=== PATIENT | male | born 1935 | race Caucasian/White ===

== ENCOUNTER 2017-06-17 10:00 | Inpatient (IN) | payer OTHER ==
[~2017-06-17] VITALS: Ht 76.2 cm; Wt 45.4 kg
[~2017-06-17 10:00] MED LIST: LEVAQUIN750 MG; RIFAMPIN300 MG
== END 2017-06-29 09:38 | disposition home or self-care (01) | DRG 193 ==
LOC: ER 10:00 → MEDI 19:32
PROC: 3E0F7GC Introduction of Other Therapeutic Substance into Respiratory Tract, Via Natural or Artificial Opening (ICD-10-PCS; principal; 2017-06-17)
PROC: 4A033R1 Measurement of Arterial Saturation, Peripheral, Percutaneous Approach (ICD-10-PCS; 2017-06-17)
PROC: BB24ZZZ Computerized Tomography (CT Scan) of Bilateral Lungs (ICD-10-PCS; 2017-06-18)
PROC: B246ZZZ Ultrasonography of Right and Left Heart (ICD-10-PCS; 2017-06-24)
DX: J09.X1 Influenza due to identified novel influenza A virus with pneumonia (principal); I50.23 Acute on chronic systolic (congestive) heart failure; J44.1 Chronic obstructive pulmonary disease with (acute) exacerbation; B37.0 Candidal stomatitis; J18.8 Other pneumonia, unspecified organism; R09.02 Hypoxemia; F17.210 Nicotine dependence, cigarettes, uncomplicated; E86.0 Dehydration; I34.0 Nonrheumatic mitral (valve) insufficiency

== ENCOUNTER 2017-12-21 05:48 | Emergency (ER) | payer OTHER ==
[~2017-12-21] VITALS: Ht 180.3 cm; Wt 49.9 kg
[2017-12-21] MEDS ORDERED: COREG CR10 MG (05:52)
== END 2017-12-21 13:16 | disposition home or self-care (01) ==
LOC: ER 05:48
DX: J44.1 Chronic obstructive pulmonary disease with (acute) exacerbation (principal); R06.02 Shortness of breath

== ENCOUNTER 2018-01-09 07:42 | Emergency (ER) | payer OTHER ==
[~2018-01-09] VITALS: Ht 177.8 cm; Wt 49.9 kg
[~2018-01-09 07:42] MED LIST changes: +COREG CR10 MG
== END 2018-01-09 12:43 | disposition home or self-care (01) ==
LOC: ER 07:42
DX: R06.02 Shortness of breath (principal); J44.9 Chronic obstructive pulmonary disease, unspecified

== ENCOUNTER 2018-02-13 06:59 | Emergency (ER) | payer OTHER ==
[~2018-02-13] VITALS: Ht 180.3 cm; Wt 49.9 kg
== END 2018-02-13 12:20 | disposition home or self-care (01) ==
LOC: ER 06:59
DX: J44.0 Chronic obstructive pulmonary disease with (acute) lower respiratory infection (principal); J11.1 Influenza due to unidentified influenza virus with other respiratory manifestations

== ENCOUNTER 2018-02-18 07:32 | Inpatient (IN) | payer OTHER ==
[~2018-02-18] VITALS: Ht 175.3 cm; Wt 47.6 kg
== END 2018-03-02 11:18 | disposition home or self-care (01) | DRG 292 ==
LOC: ER 07:32 → ICU-2 17:15 → MEDJ 02-20 07:19 → SEC-K 02-20 07:26 → MEDJ 02-20 07:28 → SURH 02-23 13:35 → MEDJ 02-23 16:25
PROC: 4A033R1 Measurement of Arterial Saturation, Peripheral, Percutaneous Approach (ICD-10-PCS; principal; 2018-02-19)
PROC: 3E0F7GC Introduction of Other Therapeutic Substance into Respiratory Tract, Via Natural or Artificial Opening (ICD-10-PCS; 2018-02-19)
PROC: 4A12X4Z Monitoring of Cardiac Electrical Activity, External Approach (ICD-10-PCS; 2018-02-20)
PROC: B246ZZZ Ultrasonography of Right and Left Heart (ICD-10-PCS; 2018-02-21)
DX: I50.21 Acute systolic (congestive) heart failure (principal); J44.1 Chronic obstructive pulmonary disease with (acute) exacerbation; J44.0 Chronic obstructive pulmonary disease with (acute) lower respiratory infection; N39.0 Urinary tract infection, site not specified; I42.0 Dilated cardiomyopathy; J20.9 Acute bronchitis, unspecified; J10.1 Influenza due to other identified influenza virus with other respiratory manifestations; I25.2 Old myocardial infarction; B96.29 Other Escherichia coli [E. coli] as the cause of diseases classified elsewhere; E86.0 Dehydration; Z16.12 Extended spectrum beta lactamase (ESBL) resistance; Z72.0 Tobacco use

== ENCOUNTER 2018-04-13 15:54 | Emergency (ER) | payer OTHER ==
[~2018-04-13] VITALS: Ht 167.6 cm; Wt 54.4 kg
== END 2018-04-13 20:41 | disposition home or self-care (01) ==
LOC: ER 15:54
DX: R33.8 Other retention of urine (principal)

== ENCOUNTER 2018-04-22 09:44 | Emergency (ER) | payer OTHER ==
[~2018-04-22] VITALS: Ht 157.5 cm; Wt 40.8 kg
== END 2018-04-22 13:06 | disposition home or self-care (01) ==
LOC: ER 09:44
DX: R31.29 Other microscopic hematuria (principal)

== ENCOUNTER 2019-05-29 10:47 | Inpatient (IN) | payer OTHER ==
[~2019-05-29] VITALS: Ht 177.8 cm; Wt 45.4 kg
--- NOTE | 2019-05-29 10:57 | NUR ---
PACIENTE ALERTA Y ORIENTADO EN PERSONA, LLEGA A ER EN AMBULANCIA, PARAMEDICOS REFIEREN QUE SABINA VECINA LOS LLAMO PORQUE EL PACIENTE SE ENCONTRABA DESORIENTADO. PARAMEDICOS REFIEREN QUE LO ENCONTRARON SOLO EN EL HOGAR, EVACUADO Y CON BOLSA DE SONDA URINARIA LLENA. PACIENTE REFIERE QUE NO SABE PORQUE ESTA EN EL HOSPITAL, REFIERE QUE HACE UNOS GUAMAN HANKS ESTADO PRESENTANDO TOS SECA.
--- NOTE | 2019-05-29 11:04 | NUR ---
MRS GUEVARA EVALUA PACIENTE.
--- NOTE | 2019-05-29 12:33 | NUR ---
SE LE DA ASEO PERSONAL POR MRS WILL ASIF Y SE LE NOTIFICA A LA DE D/C KATHERINE PALAFOX YA QUE TIENE OLOR FETIDO Y CON SAPPHIRE POR TODO LADOS. SE TRANSFIERE A LA UNIDAD DE CHEST PAIN POR ORDEN DE LA DRA DEVRIES Y SE UBICA EN CAMA # 18. SE CONECTA A MONITOR CARDIACO CON OXIMETRIA . SE MANTIENE EN OBSERVACION.
--- NOTE | 2019-05-29 13:00 | NUR ---
EVALUADO POR LA DRA TSE SE ORIENTA PTE SOBRE TRATAMIENTO MEDICO .SE LE EXTRAEN MUESTRAS DE RYDER Y SE ENVIAN AL LABORATORIO. SE MANTIENE EN OBSERVACION.
== END 2019-05-30 06:18 | disposition expired ==
LOC: ER 10:47 → ICU-2 14:56 → ICU 20:52
PROVIDERS: ADMIT Internal Medicine Cardiovascular Disease
PROC: 4A033R1 Measurement of Arterial Saturation, Peripheral, Percutaneous Approach (ICD-10-PCS; principal; 2019-05-29)
PROC: 4A12XFZ Monitoring of Cardiac Rhythm, External Approach (ICD-10-PCS; 2019-05-29)
DX: I42.0 Dilated cardiomyopathy (principal); I21.4 Non-ST elevation (NSTEMI) myocardial infarction; J18.9 Pneumonia, unspecified organism; J44.1 Chronic obstructive pulmonary disease with (acute) exacerbation; E86.0 Dehydration; F17.290 Nicotine dependence, other tobacco product, uncomplicated; I48.91 Unspecified atrial fibrillation; R33.8 Other retention of urine; I50.9 Heart failure, unspecified